=== PATIENT | male | born 1940 | race Caucasian/White ===

== ENCOUNTER 2020-02-12 13:14 | Emergency (ER) | payer OTHER, BC ==
[2020-02-12 13:17] VITALS: BP 136/73; PULSE 76; TEMP 97.9; BMI 23.8
[2020-02-12] MEDS ORDERED: IBUPROFEN 600 MG TABLET (FP) PO ONE ×2 (13:31→13:40)
[2020-02-12 14:17] LABS: BASO % 0.3 % (0-2.0); HEMATOCRIT 37.6 % (35.4-49); HEMOGLOBIN 12.4 GM/dL (11.7-16.9); LYMPH % 26.6 % (8-40); MCH 29.6 pg (25.7-33.7); MCHC 32.9 g/dl (32.0-35.9); MEAN PLT VOLUME 7.7 fl (7.5-11.1); MONO % 6.5 % (3.8-10.2); NEUT % 65.6 % (42.8-82.8); PLATELET COUNT 213 K/MM3 (134-434); RBC 4.18 M/mm3 (4.00-5.60); WHITE BLOOD COUNT 6.8 K/mm3 (4.0-10.0)
[2020-02-12 14:37] LABS: CALCIUM 9.2 mg/dL (8.5-10.1)
[2020-02-12 14:38] LABS: BLOOD UREA NITROGEN 13.7 mg/dL (7-18)
[2020-02-12 14:41] LABS: CREATININE 1.2 mg/dL (0.55-1.3)
[2020-02-12 14:42] LABS: BILIRUBIN,TOTAL 0.4 mg/dL (0.2-1); TOT PROT 7.4 g/dl (6.4-8.2)
[2020-02-12 14:56] LABS: ERYTHROCYTE SEDIMENTATION RATE 13 mm/hr (0-20)
== END 2020-02-12 15:42 | disposition home or self-care (01) ==
LOC: JERFT 13:14
DX: R22.31 Localized swelling, mass and lump, right upper limb (principal)
CPT/HCPCS: 36415; 73130-TC-RT-FY; 80053; 85025; 85651; 86140; 99284-25